=== PATIENT | male | born 1990 | race Caucasian/White ===

== ENCOUNTER 2017-06-11 14:28 | Emergency (ER) | payer SELFPAY ==
[2017-06-11 15:13] VITALS: BP 114/72
--- NOTE | 2017-06-11 16:19 | ER Document Report ---
ED Neck/Back Problem - General Chief Complaint: Neck Problem Stated Complaint: NECK, BACK PAIN Time Seen by Provider: 06/11/17 15:59 Mode of Arrival: Ambulatory Information source: Patient Notes: Patient is a 26-year-old male who presents to the ER today for a swollen knot that is hard and tender to the left side of his upper back with pain on turning his neck to the left side. Patient states that he had some discomfort sleeping last night and woke up and felt does not this morning. He denies any fevers, chills, coughing, runny nose, vomiting or diarrhea or any other sick symptoms. He denies any history of abscesses or MRSA, anything ever having to be incised and drained. TRAVEL OUTSIDE OF THE [place] IN LAST 30 DAYS: No - Related Data Allergies/Adverse Reactions: No Known Allergies Allergy (Verified 12/26/15 17:26) Past Medical History - General Information source: Patient - Social History Smoking Status: Unknown if Ever Smoked Family History: Reviewed & Not Pertinent Patient has suicidal ideation: No Patient has homicidal ideation: No Renal/ Medical History: Denies: Hx Peritoneal Dialysis - Immunizations Immunizations up to date: No Review of Systems - Review of Systems Constitutional: No symptoms reported EENT: No symptoms reported Cardiovascular: No symptoms reported Respiratory: No symptoms reported Gastrointestinal: No symptoms reported Genitourinary: No symptoms reported Male Genitourinary: No symptoms reported Musculoskeletal: No symptoms reported Skin: See HPI Hematologic/Lymphatic: No symptoms reported Neurological/Psychological: No symptoms reported Physical Exam - Vital signs Vitals: Temp Pulse Resp BP Pulse Ox 98.1 F 75 16 114/72 99 06/11/17 15:12 06/11/17 15:12 06/11/17 15:12 06/11/17 15:12 06/11/17 15:12 - Notes Notes: PHYSICAL EXAMINATION: GENERAL: Well-appearing and in no acute distress. HEAD: Atraumatic, normocephalic. EYES: Pupils equal round and reactive to light, extraocular movements intact, sclera anicteric, conjunctiva are normal. ENT: ear canals without erythema or foreign body, TMs pearly lares with good bony landmarks, nares patent, oropharynx clear without exudates. Moist mucous membranes. NECK: Posterior cervical normal range of motion but with pain on rotation to the left, n, supple without lymphadenopathy LUNGS: CTAB and equal. No wheezes rales or rhonchi. HEART: Regular rate and rhythm without murmurs ABDOMEN: Soft, no tenderness. No guarding, no rebound BACK: no vertebral tenderness, normal ROM GI/: no CVA tenderness EXTREMITIES: Normal range of motion, no pitting edema. No cyanosis. NEUROLOGICAL: Cranial nerves grossly intact. Normal sensory/motor exams. PSYCH: Normal mood, normal affect. SKIN: Warm, Dry, normal turgor,circular knot to left upper back/neck, tender to palpation, no erythematous or fluctuant Course - Re-evaluation Re-evalutation: 06/11/17 16:16 pt declined I&D, i did inform him he may have to return to get incised and drained if it worsens, but I will place him on abx. - Vital Signs Vital signs: Temp Pulse Resp BP Pulse Ox 98.1 F 75 16 114/72 99 06/11/17 15:12 06/11/17 15:12 06/11/17 15:12 06/11/17 15:12 06/11/17 15:12 Discharge - Discharge Clinical Impression: knot upper back Condition: Stable Disposition: HOME, SELF-CARE Additional Instructions: Return immediately for any new or worsening symptoms. Follow up with primary care provider, call tomorrow to make followup appointment. Prescriptions: Prednisone 40 mg PO DAILY #10 tablet Sulfamethoxazole/Trimethoprim [Bactrim Ds Tablet] 1 each PO BID #20 tablet Forms: Return to Work
== END 2017-06-11 17:05 | disposition home or self-care (01) ==
LOC: ER 14:28
DX: R22.2 Localized swelling, mass and lump, trunk (principal)
CPT/HCPCS: 99282

== ENCOUNTER 2017-10-21 21:43 | Emergency (ER) | payer SELFPAY ==
[2017-10-21] MEDS ORDERED: FENTANYL CITRATE INJ/PF 100 MCG/2 ML AMPUL IV PRN (21:58)
[2017-10-21] MEDS ORDERED: LIDOCAINE 5% (700 MG) TRANSDERMAL ADH..PATCH TP ONE (21:59)
[2017-10-21] MEDS ORDERED: KETOROLAC TROMETHAMINE INJ/PF 30 MG/1 ML SDV IV ONE (22:00)
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
[2017-10-21 22:16] LABS: ABSOLUTE BASOPHILS # (AUTO) 0.1 10^3/uL (0.0-0.2); ABSOLUTE EOSINOPHILS # (AUTO) 0.4 10^3/uL (0.0-0.6); ABSOLUTE LYMPHOCYTES (AUTO) 2.4 10^3/uL (0.5-4.7); ABSOLUTE MONOCYTES (AUTO) 0.7 10^3/uL (0.1-1.4); ABSOLUTE NEUT (AUTO) 7.4 10^3/uL (1.7-8.2); BASOPHILS % (AUTO) 0.9 % (0-2); EOSINOPHILS % (AUTO) 3.4 % (0-6); HEMATOCRIT 42.8 % (37.9-51.0); HEMOGLOBIN 14.7 g/dL (13.5-17.0); LYMPHOCYTES % (AUTO) 22.1 % (13-45); MEAN CORPUSCULAR HGB CONC 34.4 g/dL (32.0-36.0); MEAN CORPUSCULAR VOLUME 84 fl (80-97); MONOCYTES % (AUTO) 6.7 % (3-13); PLATELET COUNT 273 10^3/uL (150-450); RED BLOOD COUNT 5.07 10^6/uL (4.35-5.55); RED CELL DISTRIBUTION WIDTH 13.3 % (11.5-14.0); SEGMENTED NEUTROPHILS % (AUTO) 66.9 % (42-78); TOTAL CELLS COUNTED % (AUTO) 100 %
[2017-10-21 22:25] LABS: ANION GAP 12 (5-19); BLOOD UREA NITROGEN 24 mg/dL (7-20); CALCIUM 9.9 mg/dL (8.4-10.2); CARBON DIOXIDE 21 mmol/L (22-30); CHLORIDE 110 mmol/L (98-107); GLUCOSE 75 mg/dL (75-110); POTASSIUM 4.5 mmol/L (3.6-5.0); SODIUM 143.4 mmol/L (137-145)
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
[2017-10-21] MEDS ORDERED: HYDROCODONE/ACETAMINOPHEN 5-325 MG (6 TAB/ER DISP) PO PRN (23:00)
[2017-10-22 02:24] VITALS: BP 119/74
== END 2017-10-21 23:30 | disposition home or self-care (01) ==
LOC: ER 21:43
DX: S09.90XA Unspecified injury of head, initial encounter (principal); S59.902A Unspecified injury of left elbow, initial encounter; S29.9XXA Unspecified injury of thorax, initial encounter; R07.81 Pleurodynia; V86.09XA Driver of other special all-terrain or other off-road motor vehicle injured in traffic accident, initial encounter
CPT/HCPCS: 99284; 96374; 96375; 36415; 85025; 80048; 71045; 73070; 70450; 72125; L0120; J3010; J1885

== ENCOUNTER 2019-06-28 20:33 | Emergency (ER) | payer SELFPAY ==
[2019-06-28 20:57] VITALS: BP 150/81
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
== END 2019-06-28 21:15 | disposition left against medical advice (07) ==
LOC: ER 20:33
DX: R06.00 Dyspnea, unspecified (principal); R00.0 Tachycardia, unspecified; F17.210 Nicotine dependence, cigarettes, uncomplicated
CPT/HCPCS: 99284

== ENCOUNTER 2020-01-21 14:39 | Emergency (ER) | payer SELFPAY ==
[2020-01-21] MEDS ORDERED: ONDANSETRON 4 MG TAB.RAPDIS PO ONE (14:59)
--- NOTE | 2020-01-21 14:59 | ER Document Report ---
ED Medical Screen (RME) - General Chief Complaint: Vomiting Stated Complaint: CRAMPING/VOMITING Time Seen by Provider: 01/21/20 14:54 Primary Care Provider: HANNY DOMINGUEZ MD [Primary Care Provider] - Follow up as needed Mode of Arrival: Ambulatory Information source: Patient Notes: 29-year-old male presented to ED for body cramping nausea vomiting no fever no diarrhea. He states it started on Monday. He states he does smoke 1 or 2 cigarettes a day he does not drink any alcohol he does use heroin and Percocet and marijuana. He states he will take whatever he get his hands on. I have told him we will get blood urine and then he will get seen in the back I will have IV orders in for when he gets to the back. Patient is alert oriented respirations regular nonlabored speaking in full sentences. I have greeted and performed a rapid initial assessment of this patient. A comprehensive ED assessment and evaluation of the patient, analysis of test results and completion of medical decision making process will be conducted by an additional ED providers. TRAVEL OUTSIDE OF THE [place] IN LAST 30 DAYS: No - Related Data Allergies/Adverse Reactions: No Known Allergies Allergy (Verified 12/26/15 17:26) Past Medical History Renal/ Medical History: Denies: Hx Peritoneal Dialysis - Immunizations Immunizations up to date: No Physical Exam - Vital signs Vitals: Temp Pulse Resp BP Pulse Ox 99 F 117 H 18 124/80 96 01/21/20 14:42 01/21/20 14:42 01/21/20 14:42 01/21/20 14:42 01/21/20 14:42 Course - Vital Signs Vital signs: Temp Pulse Resp BP Pulse Ox 99 F 117 H 18 124/80 96 01/21/20 14:42 01/21/20 14:42 01/21/20 14:42 01/21/20 14:42 01/21/20 14:42 Doctor's Discharge - Discharge Referrals: HANNY DOMINGUEZ MD [Primary Care Provider] - Follow up as needed
[2020-01-21 16:29] LABS: ABSOLUTE LYMPHOCYTES (AUTO) 3.2 10^3/uL (0.5-4.7); ABSOLUTE MONOCYTES (AUTO) 1.3 10^3/uL (0.1-1.4); ABSOLUTE NEUT (AUTO) 8.7 10^3/uL (1.7-8.2); BASOPHILS % (AUTO) 0.3 % (0-2); HEMATOCRIT 49.6 % (37.9-51.0); HEMOGLOBIN 17.8 g/dL (13.5-17.0); LYMPHOCYTES % (AUTO) 24.3 % (13-45); MEAN CORPUSCULAR HEMOGLOBIN 28.8 pg (27.0-33.4); MEAN CORPUSCULAR HGB CONC 35.9 g/dL (32.0-36.0); MEAN CORPUSCULAR VOLUME 80 fl (80-97); PLATELET COUNT 345 10^3/uL (150-450); RED BLOOD COUNT 6.18 10^6/uL (4.35-5.55); RED CELL DISTRIBUTION WIDTH 13.3 % (11.5-14.0); SEGMENTED NEUTROPHILS % (AUTO) 65.4 % (42-78); TOTAL CELLS COUNTED % (AUTO) 100 %; WHITE BLOOD COUNT 13.3 10^3/uL (4.0-10.5)
[2020-01-21 16:30] LABS: APPEARANCE,URINE SLIGHTLY-CLOUDY; BILIRUBIN,URINE NEGATIVE (NEGATIVE); COLOR,URINE AMBER; GLUCOSE, URINE NEGATIVE (NEGATIVE); KETONES,URINE TRACE mg/dL (NEGATIVE); LEUKOCYTE ESTERASE,URINE NEGATIVE (NEGATIVE); NITRITE,URINE NEGATIVE (NEGATIVE); PROTEIN,URINE 30 mg/dL (NEGATIVE); URINE SPECIFIC GRAVITY 1.028
[2020-01-21 16:43] LABS: ALBUMIN 5.4 g/dL (3.5-5.0); ALKALINE PHOSPHATASE 75 U/L (38-126); ANION GAP 13 (5-19); ASPARTATE AMINO TRANSFERASE 23 U/L (17-59); BILIRUBIN,DIRECT 0.3 mg/dL (0.0-0.4); BILIRUBIN,TOTAL 0.8 mg/dL (0.2-1.3); BLOOD UREA NITROGEN 19 mg/dL (7-20); CALCIUM 10.7 mg/dL (8.4-10.2); CARBON DIOXIDE 31 mmol/L (22-30); CHLORIDE 95 mmol/L (98-107); CREATINE KINASE 50 U/L (55-170); GLUCOSE 120 mg/dL (75-110); TOTAL PROTEIN 8.5 g/dL (6.3-8.2)
[2020-01-21] MEDS ORDERED: RINGERS SOLUTION,LACTATED 1,000 ML IV ONE (16:48)
[2020-01-21 16:49] LABS: URINE AMPHETAMINES SCREEN NEGATIVE; URINE BARBITURATES SCREEN NEGATIVE; URINE COCAINE SCREEN NEGATIVE; URINE METHADONE SCREEN NEGATIVE; URINE PHENCYCLIDINE SCREEN NEGATIVE
[2020-01-21 16:50] LABS: URINE BENZODIAZEPINES SCREEN UNCONFIRMED POSITIVE; URINE MARIJUANA (THC) SCREEN UNCONFIRMED POSITIVE
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
[2020-01-21 19:30] VITALS: BP 142/86
== END 2020-01-21 19:30 | disposition home or self-care (01) ==
LOC: ER 14:39
DX: R11.2 Nausea with vomiting, unspecified (principal); M79.10 Myalgia, unspecified site; F17.200 Nicotine dependence, unspecified, uncomplicated; F12.10 Cannabis abuse, uncomplicated; F11.10 Opioid abuse, uncomplicated
CPT/HCPCS: 99284; 96360; 96361; 36415; 87086; 82550; 83690; 85025; 80053; 81001; 80307; S0119; J7120